=== PATIENT | female | born 1940 | race Caucasian/White ===

== ENCOUNTER 2018-05-05 22:49 | Emergency (ER) | payer MEDICARE, BC ==
[2018-05-05] MEDS ORDERED: diphenhydrAMINE 25 MG Cap PO ONE (23:40)
--- NOTE | 2018-05-05 23:40 | EDM.PDOC ---
ED HPI GENERAL MEDICAL PROBLEM - General Chief Complaint: Bite:Animal, Insect Stated Complaint: BEE STING Time Seen by Provider: 05/05/18 23:30 Source of Information: Reports: Patient History Limitations: Reports: No Limitations - History of Present Illness INITIAL COMMENTS - FREE TEXT/NARRATIVE: 78 yo female was stung multiple times this early afternoon. Is here now with some localized itching/redness. No tx prior to arrival. No hx of allergy. Onset: Today Onset Date: 05/05/18 Onset Time: 13:00 Duration: Hour(s):, Constant Location: Reports: Generalized Quality: Reports: Other (itching) Severity: Mild Improves with: Reports: None Worsens with: Reports: None Context: Reports: Other (bee stings) Associated Symptoms: Reports: No Other Symptoms Treatments MAC ARTIST: Reports: Cold Therapy Right Hand Pain Score (Numeric/FACES): 4 - Related Data Allergies Allergy/AdvReac Type Severity Reaction Status Date / Time latex Allergy Itching Verified 05/05/18 23:13 Sulfa (Sulfonamide Allergy Nausea Verified 05/05/18 23:14 Antibiotics) Home Meds: Home Meds Lisinopril 10 mg PO DAILY 05/05/18 [History] Simvastatin 10 mg PO DAILY 05/05/18 [History] Past Medical History HEENT History: Reports: Cataract Cardiovascular History: Reports: High Cholesterol, Hypertension [employer] History: Reports: Spontaneous Musculoskeletal History: Reports: Osteoarthritis Dermatologic History: Reports: Eczema - Past Surgical History HEENT Surgical History: Reports: Cataract Surgery Social & Family History - Family History Family Medical History: Noncontributory - Tobacco Use Smoking Status *Q: Former Smoker Used Tobacco, but Quit: Yes Month/Year Tobacco Last Used: 50 years ago - Caffeine Use Caffeine Use: Reports: Coffee Other Caffeine Use: 6 cups in morning - Recreational Drug Use Recreational Drug Use: No ED ROS GENERAL - Review of Systems Review Of Systems: See Below Constitutional: Reports: No Symptoms HEENT: Reports: No Symptoms Respiratory: Reports: No Symptoms Cardiovascular: Reports: No Symptoms Skin: Reports: Pruritis Neurological: Reports: No Symptoms ED EXAM, ANIMAL BITE - Physical Exam Exam: See Below Exam Limited By: No Limitations General Appearance: Alert, WD/WN, No Apparent Distress Eye Exam: Bilateral Eye: Normal Inspection Ears: Normal External Exam, Normal Canal, Hearing Grossly Normal Nose: Normal Inspection, Normal Mucosa, No Blood Throat/Mouth: Normal Inspection, Normal Lips, Normal Oropharynx, Normal Voice, No Airway Compromise, Other (voice normal) Head: Atraumatic, Normocephalic Neck: Normal Inspection, Supple, Non-Tender Respiratory/Chest: No Respiratory Distress, Lungs Clear, Normal Breath Sounds, No Accessory Muscle Use Extremities: Normal Inspection Neurological: Alert, Oriented, CN II-XII Intact, Normal Cognition, No Motor/ Sensory Deficits Psychiatric: Normal Affect, Normal Mood Skin Exam: Normal Color, Warm/Dry, Other (Has areas of induration/redness assoc with pruritis where she was stung. ) Course - Vital Signs Last Recorded V/S: Last Vital Signs Temp 36.6 C 05/05/18 23:05 Pulse 95 05/05/18 23:05 Resp 16 05/05/18 23:05 BP 157/79 H 05/05/18 23:05 Pulse Ox 93 L 05/05/18 23:05 - Orders/Labs/Meds Meds: Medications Discontinued Medications Generic Name Dose Route Start Last Admin Trade Name Karoline PRN Reason Stop Dose Admin Diphenhydramine HCl 25 mg 05/05/18 23:40 Benadryl PO 05/05/18 23:41 ONETIME ONE Departure - Departure Time of Disposition: 23:43 Disposition: Home, Self-Care 01 Condition: Good Clinical Impression: Bee sting Qualifiers: Encounter type: initial encounter Injury intent: accidental or unintentional Qualified Code(s): T63.441A - Toxic effect of venom of bees, accidental ( unintentional), initial encounter - Discharge Information *PRESCRIPTION DRUG MONITORING PROGRAM REVIEWED*: Not Applicable *COPY OF PRESCRIPTION DRUG MONITORING REPORT IN PATIENT JACEY: Not Applicable Instructions: Bee, Wasp, or Hornet Sting, Adult Referrals: PCP,None [Primary Care Provider] - Forms: ED Department Discharge Additional Instructions: Take diphenhydramine 25-50 mg every 4-6 hrs as needed. May ice the more severe sites. Recheck in the clinic if worse or not improving.
== END 2018-05-06 00:04 | disposition home or self-care (01) ==
LOC: JP.ED 22:49
DX: T63.441A Toxic effect of venom of bees, accidental (unintentional), initial encounter (principal); I10 Essential (primary) hypertension; E78.00 Pure hypercholesterolemia, unspecified; Z88.2 Allergy status to sulfonamides; Z87.891 Personal history of nicotine dependence; Z79.899 Other long term (current) drug therapy; Z91.040 Latex allergy status
CPT/HCPCS: 99282; 99283; A9270

== ENCOUNTER 2023-11-10 08:18 | Emergency (ER) | payer BC, MEDICARE ==
[2023-11-10] MEDS: Cyclobenzaprine 10 MG Tab PO ONE (09:12)
[2023-11-10] MEDS: Ketorolac 30 MG/ML SDV IM ONE (09:15)
== END 2023-11-10 11:18 | disposition home or self-care (01) ==
LOC: JP.ED 08:18
DX: S16.1XXA Strain of muscle, fascia and tendon at neck level, initial encounter (principal); I10 Essential (primary) hypertension; E78.00 Pure hypercholesterolemia, unspecified; Z90.710 Acquired absence of both cervix and uterus; Z88.2 Allergy status to sulfonamides; Z91.040 Latex allergy status; Z79.899 Other long term (current) drug therapy; X50.1XXA Overexertion from prolonged static or awkward postures, initial encounter
CPT/HCPCS: 72125; 76377; 96372; 99283; A9270; J1885; 99284

== ENCOUNTER 2023-11-13 15:42 | Emergency (ER) | payer MEDICARE ==
[2023-11-13] MEDS: Acetaminophen 500 MG Tab PO ONE ×2 (17:12→18:23)
[2023-11-13 17:20] LABS: BASOPHILS ABSOLUTE AUTO 0.05 K/uL (0.00-0.10); BASOPHILS PERCENT AUTO 0.7 % (0.1-1.3); EOSINOPHILS ABSOLUTE AUTO 0.37 K/uL (0.00-0.40); EOSINOPHILS PERCENT AUTO 5.4 % (0.0-5.4); HEMATOCRIT 41.8 % (34.3-46.0); HEMOGLOBIN 14.3 g/dL (11.2-15.5); IMMATURE GRAN ABSOLUTE AUTO 0.03 K/uL (0.00-0.23); IMMATURE GRAN PERCENT AUTO 0.4 % (0.0-0.7); MEAN CORPUSCULAR HEMOGLOBIN 32.2 pg (31.6-35.5); MEAN CORPUSCULAR HGB CONC 34.2 g/dL (31.6-35.5); MEAN CORPUSCULAR VOLUME 94.1 fL (81.4-99.0); MONOCYTES ABSOLUTE AUTO 0.64 K/uL (0.20-0.90); MONOCYTES PERCENT AUTO 9.3 % (3.3-12.6); NEUTROPHILS ABSOLUTE AUTO 4.69 K/uL (1.0-7.6); NEUTROPHILS PERCENT AUTO 68.2 % (40.0-78.1); PLATELET COUNT,PLT 219 K/uL (130-375); RED BLOOD CELL COUNT 4.44 M/uL (3.77-5.24); WHITE BLOOD CELL COUNT,WBC 6.9 K/uL (3.2-11.0)
[2023-11-13 17:40] LABS: A/G RATIO 0.9 (1.2-2.2); ALANINE AMINOTRANSFERASE,ALT 27 U/L (12-78); ALBUMIN 3.4 g/dL (3.4-5.0); ALKALINE PHOSPHATASE 77 U/L (46-116); ANION GAP 9.3 mmol/L (5.0-14.0); ASPARTATE AMNIOTRANSFERASE,AST 25 U/L (15-37); BILIRUBIN TOTAL 0.3 mg/dL (0.2-1.0); BLOOD UREA NITROGEN,BUN 19 mg/dL (7-18); CALCIUM 9.4 mg/dL (8.5-10.1); CARBON DIOXIDE,CO2 28 mmol/L (21-32); CHLORIDE,CL 103 mmol/L (100-108); EST CRCL DRUG DOSING (CG) 31.69 mL/min; ESTIMATED GFR 57 mL/min (>60); GLUCOSE RANDOM 97 mg/dL (74-106); POTASSIUM,K 4.5 mmol/L (3.6-5.2); PROTEIN TOTAL,TP 7.4 g/dL (6.4-8.2); SODIUM,NA 140 mmol/L (140-148)
[2023-11-13] MEDS: Sodium Chloride 0.9% 10 ML Syringe FLUSH ONE (18:32)
[2023-11-13] MEDS: Iopamidol 612 MG/ML 100 ML Bottle IV SCH (18:47)
[2023-11-13] MEDS: Sodium Chloride 0.9% 50 ML IV ONE ×2 (18:47→19:50)
[2023-11-13] MEDS ORDERED: Sodium Chloride 0.9% 10 ML Syringe FLUSH ONE (19:28)
[2023-11-13] MEDS ORDERED: Sodium Chloride 0.9% 50 ML IV ONE (19:49)
[2023-11-13] MEDS: Iopamidol 755 Mg/ML 100 ML Bottle IV SCH (19:50)
[2023-11-13] MEDS: hydrALAZINE 20 MG/ML SDV IVPUSH ONE (19:54)
[2023-11-13] MEDS ORDERED: Iopamidol 755 Mg/ML 100 ML Bottle IV SCH (20:00)
== END 2023-11-13 21:11 | disposition other institution (70) ==
LOC: JP.ED 15:42
DX: I60.9 Nontraumatic subarachnoid hemorrhage, unspecified (principal); E78.00 Pure hypercholesterolemia, unspecified; I10 Essential (primary) hypertension; Z91.040 Latex allergy status; Z88.2 Allergy status to sulfonamides; Z79.899 Other long term (current) drug therapy; Z90.710 Acquired absence of both cervix and uterus
CPT/HCPCS: 36415; 70470; 70496; 80053; 85025; 86140; 96374; 99285; A9270; J0360; J3490; Q9967

== ENCOUNTER 2025-06-18 12:22 | Emergency (ER) | payer MEDICARE | END 2025-06-18 14:22 | disposition home or self-care (01) | LOC: JP.ED 12:22 | DX: H21.01 Hyphema, right eye (principal); I10 Essential (primary) hypertension; Z88.2 Allergy status to sulfonamides; E78.00 Pure hypercholesterolemia, unspecified; Z90.710 Acquired absence of both cervix and uterus | CPT/HCPCS: 99282 ==